=== PATIENT | female | born 1950 | race Caucasian/White ===

== ENCOUNTER → 2018-11-13 | Outpatient (CLI) | payer MEDICARE, OTHER ==
--- NOTE | 2018-11-13 13:21 | 2DMMODE ---
[place] [address] 2 D/M-MODE ECHOCARDIOGRAM Name: DANIELE ULLOANA FELIPE Room: [facility]#: [id number] Admission: 11/13/18 Attend Phys: Dequan Keller, Discharge: Date of : 50 Date of Service: 11/13/18 1320 Report #: [id number] THIS REPORT FOR: //name// APPROVED REPORT Study performed: 11/13/2018 10:53:12 EXAM: Comprehensive 2D, Doppler, and color-flow Echocardiogram Patient Location: Out-Patient BSA: 1.67 HR: 92 bpm BP: 130/78 mmHg Other Information Study Quality: Fair Indications Murmur VSD 2D Dimensions IVSd: 9.70 (7-11mm) LVOT Diam: 20.19 (18-24mm) LVDd: 40.98 mm PWd: 9.56 (7-11mm) Ascending Ao: 28.51 (22-36mm) LVDs: 24.86 (25-40mm) Aortic Root: 26.90 mm Volumes Left Atrial Volume (Systole) LA ESV Index: 11.10 mL/m2 Aortic Valve AoV Peak Robert.: 1.31 m/s AO Peak Gr.: 6.84 mmHg LVOT Max P.09 mmHg AO Mean Gr.: 3.25 mmHg LVOT Mean P.09 mmHg LVOT Max V: 0.72 m/s AO V2 VTI: 21.17 cm LVOT Mean V: 0.49 m/s SERGIO (VTI): 2.07 cm2 LVOT V1 VTI: 13.69 cm Mitral Valve E/A Ratio: 0.58 MV Decel. Time: 381.24 ms MV E Max Robert.: 0.41 m/s MV PHT: 110.56 [place] [address] 2 D/M-MODE ECHOCARDIOGRAM Name: FRIEDA ULLOA Room: [facility]#: [id number] Admission: 11/13/18 Attend Phys: Dequan Keller, Discharge: Date of : 50 Date of Service: 11/13/18 1320 Report #: [id number] MVA (PHT): 1.99 cm2 TDI E/Lateral E': 4.10 E/Medial E': 4.56 Medial E' Robert.: 0.09 m/s Lateral E' Robert.: 0.10 m/s Pulmonary Valve PV Peak Robert.: 1.03 m/s PV Peak Gr.: 4.22 mmHg Tricuspid Valve RAP Estimate: 5.00 mmHg TR Peak Gr.: 16.07 mmHg RVSP: 21.07 mmHg PA Pressure: 21.07 mmHg Left Ventricle The left ventricle is normal size. There is normal LV segmental wall motion. There is normal left ventricular wall thickness. Evidence of a small perimembranous ventricular septal defect with a small amount of left to right flow noted by color doppler. Left ventricular systolic function is normal. The left ventricular ejection fraction is within the normal range. LVEF is 55-60%. Grade I - abnormal relaxation pattern. Right Ventricle The right ventricle is normal size. The right ventricular systolic function is normal. Atria The left atrium size is normal. The right atrium size is normal. Aortic Valve The aortic valve is normal in structure. No aortic regurgitation is present. There is no aortic valvular stenosis. Mitral Valve The mitral valve is normal in structure. There is no mitral valve regurgitation noted. No evidence of mitral valve stenosis. Tricuspid Valve The tricuspid valve is normal in structure. Mild tricuspid regurgitation. Pulmonic Valve Pulmonic valve is not well visualized. There [place] [address] 2 D/M-MODE ECHOCARDIOGRAM Name: FRIEDA ULLOA Room: [facility]#: [id number] Admission: 11/13/18 Attend Phys: Dequan Keller, Discharge: Date of : 50 Date of Service: 11/13/18 1320 Report #: [id number] regurgitation. Great Vessels The aortic root is normal in size. IVC is normal in size and collapses >50% with inspiration. Pericardium There is no pericardial effusion. <Conclusion> LVEF is 55-60%. Evidence of a small perimembranous ventricular septal defect with a small amount of left to right flow noted by color doppler. <ELECTRONICALLY SIGNED> By: Clint Huff MD, [facility] 11/13/18 1320 1320 1320 Clint Huff MD, FACC /INF
== END ==
LOC: M.CRD 10:52
DX: I07.1 Rheumatic tricuspid insufficiency (principal); Q21.0 Ventricular septal defect; Z88.2 Allergy status to sulfonamides; Z88.8 Allergy status to other drugs, medicaments and biological substances

== ENCOUNTER → 2018-11-19 | Outpatient (CLI) | payer MEDICARE, OTHER ==
--- NOTE | 2018-11-19 16:30 | CARDNUC ---
[place] [address] CARDIAC NUCLEAR IMAGING REPORT Name: DANIELE ULLOANA FELIPE Room: [facility]#: [id number] Admission: 11/19/18 Attend Phys: Dequan Keller, Discharge: Date of : 50 Date of Service: 11/19/18 1630 Report #: [id number] THIS REPORT FOR: //name// APPROVED REPORT Study performed: 11/19/2018 14:41:54 Exam: Nuclear Stress Test Indication: Dyspnea, left arm and shoulder pain. Patient Location: Out-Patient Stress Tech: Milly Natarajan Stress Nurse: Monica Kirk R.N. NM Tech:PARISH Catherine Ht: 5 ft 2 in Wt: 145 lbs BSA: 1.67 m2 BMI: 26.51 Medical History Medical History: Fatigue, Smoking, SOB, VSD. Medications: No Cardiac Medications Allergies: Codeine, Statins, Sulfa ABT. Cardiac Risk Factors: Age, Current Smoker, FHX of CAD, SOB, VSD. Previous Cardiac Procedures: None Pretest Chest Pain Characteristics: No chest pain Exercise History: Indeterminate Physical Disabilities: Generalized weakness, unsteady gait. Meds Held (24 hrs): None Stress Test Details Stress Test: Pharmacologic stress testing performed using 0.4 mg of regadenoson per 5 mL given IV over 10 seconds. Reason for pharmacologic stress test: unsteady gait, generalized weakness.. HR Resting HR: 81 bpm Max Heart Rate (APMHR): 153 bpm Max HR Achieved: 118 bpm Target HR (85% APMHR): 130 bpm % of APMHR: 77 Recovery HR: 100 bpm BP Resting BP: 127/76 mmHg Max BP: 102/72 [place] [address] CARDIAC NUCLEAR IMAGING REPORT Name: FRIEDA ULLOA Room: [facility]#: [id number] Admission: 11/19/18 Attend Phys: Dequan Keller, Discharge: Date of : 50 Date of Service: 11/19/18 1630 Report #: [id number] Resting ECG: Sinus Rhythm Stress ECG: Sinus Tachycardia ST Change: None Arrhythmia: None Recovery ECG: Sinus Rhythm Recovery ST Change: None Recovery Arrhythmia: None Clinical Reason for Termination: Completed protocol Stress Symptoms: Nausea, Headache, Dizziness. Exercise duration: 00 min 00 sec Exercise capacity: 1.00 METs The patient tolerated Lexiscan infusion without significant cardiac symptoms. Nurse Comments A 67 year old female presented with c/o dyspnea and left arm and shoulder pain. Patient completed a sitting Lexiscan Stress Test. Recovery unremarkable with PO caffeine, effective. Patient was escorted by staff to Nuclear Medicine for images. Patient was stable with no further complaints at that time. Stress ECG Conclusion The baseline 12-lead EKG show sinus rhythm with no significant ST or T wave abnormality. EKGs obtained during and post Lexiscan infusion show sinus rhythm and sinus tachycardia with no significant ST or T wave changes when compared to baseline. There were no stress-induced arrhythmias. NM EXAM: Myocardial Perfusion REST/STRESS Imaging Protocol: Rest Tc-99m/Stress Tc-99m 1 day Resting Data Rest SPECT myocardial perfusion imaging was performed in supine position 30 minutes following the intravenous injection of 11.2 mCi of Tc-99m Sestamibi. Time of rest injection: 1315 Date: 11/19/2018 The images were gated to evaluate regional wall motion and calculate left ventricular ejection fraction. Administration Route: IV Administration Site: Right AC Pharmacologic Stress Pharmacologic stress test was performed by injecting Regadenoson 0.4 mg IV push followed by the intravenous injection of 33.7 [place] [address] CARDIAC NUCLEAR IMAGING REPORT Name: FRIEDA ULLOA Room: [facility]#: [id number] Admission: 11/19/18 Attend Phys: Dequan Keller, Discharge: Date of : 50 Date of Service: 11/19/18 1630 Report #: [id number] Tc-99m Sestamibi. Time of stress injection: 1440 Date: 11/19/2018 Administration Route: IV Administration Site: Right AC Gated Stress SPECT was performed 40 minutes after stress injection. The images were gated to evaluate regional wall motion and calculate left ventricular ejection fraction. Prone imaging was performed. Study Quality Study: Good Artifact: Mild Diaphragmatic artifact Study Data At rest, the left ventricular ejection fraction was 63%.. Post stress, the left ventricular ejection was 76%.. TID = 1.01. Perfusion Perfusion images obtained in the supine position at rest and post Lexiscan stress show a size mild intensity defect involving the mid to distal anterior wall that resolves completely on post stress prone imaging suggesting diaphragmatic attenuation artifact. No other significant fixed or reversible defects were identified. Wall Motion Normal left ventricular wall motion. Nuclear Conclusion ECG Findings: negative for ischemia Clinical Findings: negative for ischemia Nuclear Findings: negative for ischemia Exercise Capacity: not assessed Left Ventricular Function: normal Risk Study: low Myocardial perfusion images show no defect to suggest ischemia. Fixed defect on the supine images that resolves with post stress prone imaging is consistent with diaphragmatic attenuation artifact. Global LV systolic function is normal. This is a low risk study. <Conclusion> The baseline 12-lead EKG show sinus rhythm with no significant ST or T wave abnormality. EKGs obtained during and post Lexiscan infusion show sinus rhythm and sinus tachycardia with no significant [place] [id number] CARDIAC NUCLEAR IMAGING REPORT Name: FRIEDA ULLOA Room: [facility]#: [id number] Admission: 11/19/18 Attend Phys: Dequan Keller, Discharge: Date of : 50 Date of Service: 11/19/18 1630 Report #: [id number] wave changes when compared to baseline. There were no stress-induced arrhythmias. <ELECTRONICALLY SIGNED> By: Kenan Juárez MD, FACC 11/19/181629 29 29 Kenan Juárez MD, FACC /INF
== END ==
LOC: M.NUC 10-31 14:01 → M.CRD 11-06 13:00 → M.NUC 11-06 13:00
DX: R06.09 Other forms of dyspnea (principal); Q21.0 Ventricular septal defect; J44.9 Chronic obstructive pulmonary disease, unspecified; E03.9 Hypothyroidism, unspecified; F17.200 Nicotine dependence, unspecified, uncomplicated; Z90.710 Acquired absence of both cervix and uterus; Z79.899 Other long term (current) drug therapy; Z72.89 Other problems related to lifestyle; Z88.2 Allergy status to sulfonamides; Z88.5 Allergy status to narcotic agent